=== PATIENT | male | born 1965 | race Caucasian/White ===

== ENCOUNTER 2022-06-01 05:34 | Day surgery (SDC) | payer BC ==
[2022-05-24 12:09] LABS: BASOPHILS # (AUTO) 0.1 X10'3 (0-0.2); EOSINOPHILS # (AUTO) 0.1 X10'3 (0-0.9); EOSINOPHILS % (AUTO) 2.6 % (0-6); LYMPHOCYTES # (AUTO) 1.3 X10'3 (1.1-4.8); LYMPHOCYTES % (AUTO) 25.7 % (21-51); MEAN CORPUSCULAR VOLUME 85.1 FL (78-98); MONOCYTES # (AUTO) 0.5 X10'3 (0-0.9); MONOCYTES % (AUTO) 9.4 % (2-12); NEUTROPHILS # (AUTO) 3.1 X10'3 (1.8-7.7); NEUTROPHILS % (AUTO) 61.3 % (42-75); PRE OP PLATELET COUNT 224 X10'3 (140-440); RED BLOOD COUNT 5.17 X10'6 (4.70-6.10); RED CELL DISTRIBUTION WIDTH 13.6 % (11.5-14.5)
[2022-05-24 12:16] LABS: ALBUMIN 3.8 G/DL (3.4-5.0); ALBUMIN/GLOBULIN RATIO 0.9 (1.1-1.5); ALKALINE PHOSPHATASE 94 IU/L (46-116); BLOOD UREA NITROGEN 11 MG/DL (7-18); BUN/CREATININE RATIO 12.5 (5.4-32.0); CALCIUM 8.8 MG/DL (8.5-10.1); CHLORIDE 102 MMOL/L (99-107); CREATININE 0.88 MG/DL (0.60-1.10); PRE OP ALT 18 U/L (30-65); PRE OP ANION GAP 6 (8-16); PRE OP AST 21 U/L (10-37); PRE OP BILIRUB, TOTAL 0.8 MG/DL (0.0-1.0); PRE OP GLUCOSE 93 MG/DL (70-104); PRE OP POTASSIUM 3.9 MMOL/L (3.4-5.1); PRE OP SODIUM 138 MMOL/L (135-145); TOTAL CARBON DIOXIDE 30.5 MMOL/L (24-32); TOTAL PROTEIN 7.9 G/DL (6.4-8.2); eGFR 90 ML/MIN
[~2022-06-01] VITALS: Ht 177.8 cm; Wt 100.0 kg
[~2022-06-01 05:34] MED LIST: AMLO5TAB16 PO; BACL10TA2 PO; CHOL100017 PO; CLOP75TA34 PO; DOCU-345 PO; DOCUMENT DATE & TIME OF BETA-BLOCKER PO ONE; ETAN50CA3 SQ; GABA300C PO; LANS30CA56 PO; METO100T14 PO; ROSU40TA22 PO; ceFAZolin inj. 2,000 MG in dextrose 5%-water 100 ML IV ONE; famotidine 20mg tablet PO ONE; ringers solution, lacted 1,000 ML IV SCH
[2022-06-01 06:17] VITALS: BP 134/94
[2022-06-01] MEDS ORDERED: triamcinolone acetonide 40mg/ml inj ONE (06:59)
[2022-06-01] MEDS ORDERED: LIDOcaine 1% 30ml preserv. free vial ONE (06:59)
[2022-06-01] MEDS ORDERED: BUPIVAcaine/PF 2.5mg/ml (0.25%) 10ml vial ONE (06:59)
[2022-06-01] MEDS ORDERED: MIDAZolam 1 MG/ML 5ML VIAL ONE (07:16)
[2022-06-01] MEDS ORDERED: fentaNYL/PF 50MCG/1 ML 2ML syringe ONE (07:16)
[2022-06-01] MEDS ORDERED: ROPIVAcaine 0.5% (5mg/ml) 30ml vial ONE (07:19)
[2022-06-01] MEDS ORDERED: LIDOcaine 2% (20mg/ml) 5ml vial ONE (07:23)
[2022-06-01] MEDS ORDERED: meperidine/PF 25mg/ml syringe IV PRN ×3 (08:00)
[2022-06-01] MEDS ORDERED: morphine 2 MG/ML inj. syringe IV PRN (08:00)
[2022-06-01] MEDS ORDERED: proCHLORperazine 10 MG/2 ml inj IV PRN (08:00)
[2022-06-01] MEDS ORDERED: ringers solution, lacted 1,000 ML IV SCH (08:00)
[2022-06-01] MEDS ORDERED: ondansetron/PF 4mg/2ml inj IV PRN (08:00)
[2022-06-01] MEDS ORDERED: morphine 4 MG/ML inj SYRINge IV PRN (08:00)
[2022-06-01] MEDS ORDERED: HYDROcodone/acetaminophen 10/325mg tab PO PRN (08:10)
--- NOTE | 2022-06-01 08:12 | NUR ---
Received from OR via [facility] , accompanied by Anesthesiologist ADAM and report given by Anesthesiolgist. PATIENT WITH 20G PIV IN RIGHT UE RUNNING LR AT 100. LEFT ANTERIOR SHOULDER WITH SINGLE BANDAID PRESENT. + CAP REFILL, FINGERS PWD AND NERVE BLOCK IN PLACE. PATIENT HAS NO PAIN AT THIS TIME. VSS AT THIS TIME. WILL CONTINUE TO ASSESS. Addendum: 06/01/22 at 0820 by Juan Whitehead RN, RN Amended: Links added.
[2022-06-01 08:13] VITALS: BP 127/87
[2022-06-01 08:20] VITALS: BP 139/86
[2022-06-01 08:30] VITALS: BP 141/86
--- NOTE | 2022-06-01 08:43 | NUR ---
ALL DISCHARGE CRITERIA HAS BEEN MET. VSS, PAIN AT A TOLERABLE LEVEL, VOIDING AND ABLE TO SAFELY AMBULATE AND TRANSFER SELF. IV TAKEN OUT WITHOUT ANY COMPLICATIONS. ALL DISCHARGE INSTRUCTIONS COVERED WITH PATIENT AND ALL QUESTIONS ANSWERED. PATIENT TAKEN OUT VIA WHEELCHAIR TO PERSONAL VEHICLE WHERE FAMILY/FRIEND DROVE PATIENT HOME. SLING ON BOTH ARMS. DRESSING TOLEFT SHOULDER WAS CDI. VSS. OUT TO VEHICLE WHERE PATIENT WAS DRIVEN HOME BY SON. Addendum: 06/01/22 at 1038 by Juan Whitehead RN, RN Amended: Links added.
== END 2022-06-01 08:43 | disposition home or self-care (01) ==
LOC: PAS 05:34
PROVIDERS: ATTEND Orthopaedic Surgery
DX: M75.02 Adhesive capsulitis of left shoulder (principal); G89.18 Other acute postprocedural pain; M45.9 Ankylosing spondylitis of unspecified sites in spine; I69.351 Hemiplegia and hemiparesis following cerebral infarction affecting right dominant side; Z79.899 Other long term (current) drug therapy; Z87.891 Personal history of nicotine dependence; Z98.890 Other specified postprocedural states
CPT/HCPCS: 23700; 36415; 64415; 76942; 80053; 82948; 85025; J0690; J2250; J2795; J3010; J3301; J3490; J7060; J7120; Z7506; Z7512; A4618; A6449; A7000